=== PATIENT | male | born 1990 | race Caucasian/White ===

== ENCOUNTER 2017-02-27 09:40 | Emergency (ER) | payer SELFPAY ==
[2017-02-27 09:58] VITALS: BP 100/82
--- NOTE | 2017-02-27 10:26 | ED ---
Throat Pain/Nasal Congestion - HPI Summary HPI Summary: Patient arrives to ED with CC of pain over left lower molar radiating to the ear. Denies trismus, drooling or dysphagia. Pain is 8/10, sharp and throbbing. Denies airway compromise or SOB. Denies ear pain, eye pain, blurry vision or double vision. Otherwise healthy. Pain has been present for years but is worse in the last 3 days. He does not have health insurance, [facility] and states that he is HIV positive. He also admits to crack cocaine, heroin, benzo use and smokes. Pain is worse with chewing and cold drinks, but only improves slightly. Patient denies dental care for several years. He is asking for a ortho surgeon today and would like his teeth extracted. Patient informed he will need to follow up with dentist. - History of Current Complaint Chief Complaint: EDDentalPain Time Seen by Provider: 02/27/17 09:50 Hx Obtained From: Patient Onset/Duration: Gradual Onset Severity: Worse Since: - 3 days ago - Allergies/Home Medications Allergies/Adverse Reactions: Allergies Allergy/AdvReac Type Severity Reaction Status Date / Time No Known Allergies Allergy Verified 02/27/17 09:49 PMH/Surg Hx/FS Hx/Imm Hx Previously Healthy: No - HIV Infectious Disease History: No Infectious Disease History: Denies: Traveled Outside the [place] in Last 30 Days - Social History Occupation: Unemployed Lives: Alone Alcohol Use: None Hx Substance Use: Yes Substance Use Type: Reports: Cocaine, Heroin, Other Substance Use Comment - Amount & Last Used: xanax, clonopin, opiates, benzos Hx Tobacco Use: Yes Smoking Status (MU): Heavy Every Day Tobacco Smoker Review of Systems Constitutional: Negative Eyes: Negative Positive: Dental Pain Cardiovascular: Negative Respiratory: Negative Positive: no symptoms reported, see HPI Positive: Rash - small ulcerated lesions over face, pt states d/t HIV Psychological: Normal All Other Systems Reviewed And Are Negative: Yes Physical Exam Triage Information Reviewed: Yes Vital Signs On Initial Exam: Initial Vitals Temp Pulse Resp BP Pulse Ox 98.5 F 78 14 112/97 97 02/27/17 09:43 02/27/17 09:43 02/27/17 09:43 02/27/17 09:43 02/27/17 09:43 Vital Signs Reviewed: Yes Appearance: Positive: Well-Appearing, Well-Nourished Skin: Positive: Warm, Skin Color Reflects Adequate Perfusion, Other - small ulcerated lesions diffusely located across face Eyes: Positive: EOMI, MUNA, Conjunctiva Clear Dental: Positive: Percussion Tenderness @ - left lower mandible tenderness, Gross Decay/Caries @ - throughout, needs multiple extractions, Dental Fracture @ - throughout, Abscess @ - left and right lower molars Neck: Positive: Nontender, No Lymphadenopathy Respiratory/Lung Sounds: Positive: Clear to Auscultation, Breath Sounds Present Cardiovascular: Positive: RRR, Pulses are Symmetrical in both Upper and Lower Extremities Musculoskeletal: Positive: Normal, Strength/ROM Intact Neurological: Positive: Normal Psychiatric: Positive: Normal Diagnostics - Vital Signs Vital Signs Temp Pulse Resp BP Pulse Ox 02/27/17 09:55 81 96 02/27/17 09:54 100/82 02/27/17 09:43 98.5 F 78 14 112/97 97 - Laboratory Lab Statement: Any lab studies that have been ordered have been reviewed, and results considered in the medical decision making process. EENT Course/Dx - Course Course Of Treatment: Dental abscess seen over area of concern of left lower molar. Molar present but is cracked and is necrosed with black tissue surrounding. Patient states years of looking similar. Erythema at site of pain. No drainage from area. Several dental caries, cavities, crowding and broken teeth throughout. Pain on palpation over mandible. No TMJ tenderness. No pain with opening and closing mouth. Poor dental hygiene and outpatient dental care. Will treat for possible dental infection/abscess based on symptoms of pain and radiation to jaw and ear. No allergies. Will treat with Penicillin. Patient to follow up immediately with dentist. Patient encouarged to follow up with PCP regarding HIV status. - Differential Diagnoses Differential Diagnoses: Dental Abscess, Dental Caries, Other - Periapical abscess, pulpal infection, pulpitis, pericoronitis - Diagnoses Provider Diagnoses: Dental caries, Dental abscess Discharge - Discharge Plan Condition: Stable Disposition: HOME Prescriptions: Ibuprofen TAB* [Motrin TAB* 600 MG] 600 mg PO Q8H PRN #20 tab MDD 3 PRN Reason: Pain Penicillin VK TAB 500 MG(NF) [Penicillin VK 500 mg Tab(NF)] 500 mg PO QID #28 tab MDD 4 Patient Education Materials: Toothache (ED), Dental Abscess (ED) Additional Instructions: DO NOT SMOKE. You have been diagnosed with dental pain with possible infection. Salt water rinses several times per day will improve healing time. Ibuprofen 600mg three times daily with meals for discomfort. Follow up with a dentist for routine care to prevent recurrence of infections. If fever, worsening pain or swelling develops, see your PCP, dentist or come back to the Emergency Department. If you develop difficulty breathing, swallowing or feel like your throat is closing up, come back to ED immediately. Use lollicaines over tooth. Images - Images Dental: 1 - black necrosed tooth with abscess
== END 2017-02-27 10:27 | disposition home or self-care (01) ==
LOC: ED 09:40
DX: K02.9 Dental caries, unspecified (principal); K04.7 Periapical abscess without sinus; K08.89 Other specified disorders of teeth and supporting structures; R21 Rash and other nonspecific skin eruption; F17.210 Nicotine dependence, cigarettes, uncomplicated
CPT/HCPCS: 36415; 86703; 99283